=== PATIENT | female | born 1930 | race Caucasian/White ===

== ENCOUNTER 2018-03-01 11:59 | Observation (INO) ==
[2018-03-01 12:37] LABS: Microscopic, Urine URINE MICROSCOPIC (MICROSCOPIC)
[2018-03-01 12:40] LABS: Appearance,Urine CLEAR (Clear); Basophils % 0.5 % (0.1-2.0); Bilirubin,Urine Negative (Negative); Blood, Urine 3+ (Negative); Color,Urine YELLOW (Yellow); Eosinophils # 0.1 K/mm3 (0.0-0.4); Glucose,Urine (UA) Negative (Negative); Hematocrit 36.7 % (37.0-47.0); Ketones,Urine Negative (Negative); Leukocyte Esterase,Urine 1+ (Negative); Lymphocytes % 14.6 K/mm3 (10-50); Mean Corpuscular HGB Conc 32.7 g/dL (31.8-35.4); Mean Corpuscular Hemoglobin 29.8 pg (27.0-31.2); Mean Platelet Volume 6.4 fl (7.4-10.4); Monocytes # 0.4 K/mm3 (0.1-1.0); Monocytes % 6.3 % (1.7-9.3); Neutrophils # 5.1 K/mm3 (1.8-7.8); Neutrophils % 77.6 % (37.0-80.0); PH,Urine 6.5 (5.0-8.5); Platelet Count 377 K/mm3 (142-424); Protein,Urine Negative (Negative); Red Blood Count 4.03 M/mm3 (4.20-5.40); Red Cell Distribution Width 13.5 % (11.5-17.5); Specific Gravity, Urine 1.015 (1.005-1.030); Urobilinogen,Urine 0.2 EU/dl (0.2); White Blood Count 6.5 K/mm3 (4.8-10.8)
--- NOTE | 2018-03-01 12:52 | Emergency Department Note ---
ED Disposition Clinical Impression: Dehydration Urinary tract infection Qualifiers: Urinary tract infection type: site unspecified Hematuria presence: without hematuria Qualified Code(s): N39.0 - Urinary tract infection, site not specified Disposition: Admitted as Observation Condition on Discharge: Fair - Critical Care Critical Care Time: No Attestation: On 03/01/18, the high probability of a clinically significant, sudden or life threatening deterioration of the following system(s) required my full and direct attention, intervention and personal management. The time I documented below is in addition to time spent performing reported procedures but includes the following listed in this critical care notation. Medical Decision Making - Will Inquiry Pt receiving controlled substance: No Vital Signs: 03/01/18 12:07 03/01/18 12:39 03/01/18 13:51 Temperature 97.7 F Temperature Source Oral Pulse Rate Pulse Rate [Right Brachial] 68 70 69 Respiratory Rate 18 Blood Pressure Blood Pressure [Right Arm] 153/84 148/80 141/72 Blood Pressure Mean [Right Arm] 107 102 95 Blood Pressure Source Blood Pressure Source [Right Arm] Automatic Cuff Automatic Cuff Blood Pressure Position Blood Pressure Position [Right Arm] Supine Sitting 02 Sat by Pulse Oximetry 98 95 97 Oxygen Delivery Method Room Air 03/01/18 14:31 03/01/18 14:56 Temperature 98.1 F Temperature Source Oral Pulse Rate 78 Pulse Rate [Right Brachial] 71 Respiratory Rate 18 Blood Pressure 135/75 Blood Pressure [Right Arm] 138/75 Blood Pressure Mean [Right Arm] 96 Blood Pressure Source Automatic Cuff Blood Pressure Source [Right Arm] Manual Cuff/ Doppler Blood Pressure Position Sitting Blood Pressure Position [Right Arm] Sitting 02 Sat by Pulse Oximetry 96 Oxygen Delivery Method Room Air - Lab Data Lab Results 03/01/18 12:30: Urine Color Yellow, Urine Appearance Clear, Urine pH 6.5, Ur Specific [place] 1.015, Urine Protein Negative, Urine Glucose (UA) Negative, Urine Ketones Negative, Urine Blood 3+, Urine Nitrate Negative, Urine Bilirubin Negative, Urine Urobilinogen 0.2, Ur Leukocyte Esterase 1+ A, Urine RBC 10-20, Urine WBC 10-20, Ur Squamous Epith Cells 3-5, Urine Bacteria 1+, Urine Mucus 1+ 03/01/18 12:30: WBC 6.5, RBC 4.03 L, Hgb 12.0 L, Hct 36.7 L, MCV 91.0, MCH 29.8 , MCHC 32.7, RDW 13.5, Plt Count 377, MPV 6.4 L, Neut % (Auto) 77.6, Lymph % ( Auto) 14.6, [place] % (Auto) 6.3, Eos % (Auto) 1.0, Baso % (Auto) 0.5, Neut # (Auto ) 5.1, Lymph # (Auto) 1.0, [place] # (Auto) 0.4, Eos # (Auto) 0.1, Baso # (Auto) 0.0 03/01/18 12:30: Sodium 138, Potassium 4.6, Chloride 101, Carbon Dioxide 30, Anion Gap 11.6, BUN 26 H, Creatinine 0.88, Estimated Creat Clear 33, Estimated GFR 61, Est GFR ( Amer) 74, Glucose 96, Calcium 9.2, Total Bilirubin 0.3 , AST 12 L, ALT 12, Alkaline Phosphatase 209 H, Total Protein 7.3, Albumin 3.2 L , Globulin 4.1 H, Albumin/Globulin Ratio 0.8 L Result diagrams: 03/01/18 12:30 03/01/18 12:30 Orders (Tests/Meds): ED MEDICATIONS Generic Name Dose Route Start Last Admin Trade Name Freq PRN Reason Stop Dose Admin Sodium Chloride 1,000 mls @ 100 mls/hr 03/01/18 15:01 Sod Chlor 0.9% 1000ml Bag IV 03/31/18 15:00 .Q10H LINDA Ceftriaxone Sodium 1 gm/ 50 mls @ 100 mls/hr 03/02/18 13:45 Sodium Chloride IV 03/15/18 13:44 Q24H LINDA Protocol Discontinued Medications Generic Name Dose Route Start Last Admin Trade Name Freq PRN Reason Stop Dose Admin Ceftriaxone Sodium 1 gm/ 50 mls @ 100 mls/hr 03/01/18 13:45 03/01/18 14:05 Sodium Chloride IV 03/15/18 13:44 100 mls/hr Q24H LINDA Administration Protocol ORDERS Category Date Time Status Elbow XR right minimum 3 views [XR elbow RT min 3V] Exams 03/01/18 13:38 Taken Stat Humerus XR right [XR humerus RT] Stat Exams 03/01/18 13:50 Taken Urine Culture Stat Micro 03/01/18 12:31 Received - Radiology Data #1 Image(s): Chest, Humerus, Elbow, Pelvis Humerus and elbow x-ray interpreted by Juan Singh MD. old healed fracture distal humerus Chest x-ray per radiologist: No acute disease Pelvis x-ray per radiologist: Negative - CT Data CT Scan: Head Time Received: 13:[address] Reviewed: Yes: I have viewed the radiologist's interpretation Findings Narrative: IMPRESSION: 1. No acute intracranial finding. 2. Bilateral mastoid sinus disease Dictated By: Roscoe Arreaga MD Signed By: <Electronically signed by Roscoe Arreaga MD in OV> 03/01/18 1315 - Physician Consults Physician Consulted: Akash Time: 13:40 Reason -: Admission Comment/Response: Agrees to admit the patient to the hospital. We discussed the patient's clinical information, including history, exam, laboratory and radiology results and ED course. Per hospital procedure, I will write temporary bridge inpatient orders on the patient. Specific orders requested by the admitting physician: Rocephin, IV fluids, ECHO General Adult HPI - General Chief complaint: Altered Mental Status Stated complaint: dehydrated won't eat or drink Time Seen by Provider: 03/01/18 12:51 Mode of Arrival: Wheelchair Limitations: No Limitations Description of Symptoms (Recalled from ER Triage Doc. by RN): Pt sent from PCP office for further evaluation for UTI. Mohsen Prasad APRN called stated pt was being seen as new pt in their office today, per pt family pt is more confused today than normal. Family reports pt has had poor po intake x3 days, family reports pt fell out of bed 2 nights ago. - History of Present Illness HPI narrative: The patient is sent over from Dr. Bustos's office. History obtained primarily from the patient's family. Patient is very hard of hearing. She has not been seen by physician in about 3 years. Family states that she has not been gaining well for 3 days. She also fell out of her bed on Wednesday 2 days ago. She has chronic back pain and continues to complain of her back, but has no other new per injuries from the fall. Family notices her urine is dark. She has had increased anxiety for a few days. No fever, vomiting, diarrhea, or upper respiratory infection symptoms. She has a visible deformity in her right elbow area from a fall a couple of months ago. Would not see a physician at that time. - Related Data Home Medications Medication Instructions Recorded Confirmed No Known Home Medications 03/01/18 03/01/18 Allergies Allergy/AdvReac Type Severity Reaction Status Date / Time NO KNOWN ALLERGIES - NKA Allergy Unknown Uncoded 03/01/18 10:32 [facility] History I have reviewed the patient's past medical history: Yes Medical History: Reports:: Anxiety, Dementia Denies:: Diabetes Mellitus Type 1, Diabetes Mellitus Type 2 Comment: DDD Other Surgeries: Yes: Hernia Repair Amputation: No Fractures: No - Social History Smoking Status: Never smoker Alcohol Intake: never Substance Use Type: denies use - Psychiatric History Expresses thoughts of harming self/others: None Suicide Plan Description: No Plan Pschychiatric History:: Reports:: Anxiety Family Hx:: Hypertension, Heart Attack Comment: Demtia. ROS Obtained: Yes unobtainable due to mental condition Physical Exam - General General appearance: alert, in no apparent distress - Head Head exam: atraumatic, normocephalic, normal inspection - Eye Eye exam: Present: normal appearance, PERRL, EOMI - ENT ENT exam: Present: normal exam, normal oropharynx, mucous membranes moist, TM's normal bilaterally, normal external ear exam - Neck Neck exam: Present: normal inspection, full ROM, trachea midline. Absent: meningismus, lymphadenopathy - Chest Chest inspection: Present: normal inspection, symmetric chest wall rise. Absent : tenderness - Respiratory Respiratory exam: Present: normal lung sounds bilaterally. Absent: respiratory distress - Cardiovascular Cardiovascular exam: Present: regular rate, normal rhythm. Absent: JVD - Abdominal Exam Abdominal exam: Present: soft, normal bowel sounds. Absent: distention, tenderness, guarding - Extremities Exam Extremities exam: Present: full ROM, normal capillary refill, other (Soft tissue prominence over the radial aspect of her right proximal forearm, elbow area. Full range of motion.). Absent: calf tenderness - Back Exam Back exam: Present: normal inspection. Absent: tenderness - Neurological Exam Neurological exam: Present: alert, oriented X3 - Psychiatric Psychiatric exam: Present: normal affect, normal mood - Skin Skin exam: Present: warm, dry, intact, normal color - Lymphatic Lymphatic Findings: no adenopathy
[2018-03-01 12:53] LABS: Albumin Level 3.2 gm/dL (3.4-5.0); Albumin/Globulin Ratio 0.8 (1.1-1.8); Anion Gap 11.6 mEq/L (5-15); Bilirubin,Total 0.3 mg/dL (0.2-1.0); Calcium 9.2 mg/dL (8.5-10.1); Globulin 4.1 gm/dl (1.3-3.2); Potassium 4.6 mmoL/L (3.5-5.1); Total Protein,Serum 7.3 gm/dL (6.4-8.2)
[2018-03-01 12:55] LABS: Bacteria,Urine 1+ /lpf; Mucus,Urine 1+ /lpf
--- NOTE | 2018-03-01 20:42 | Cardiology Report ---
PROCEDURE: 2-D M-mode and color Doppler study INDICATIONS FOR THE TEST: Chest pain COPD Heart Murmur Tobacco Smoking Palpitations FatigueX Syncope Edema Hypertension Diabetes Mellitus Rheumatic Fever SOBXDOE Obesity Hyperlipidemia Family History HD Additional History WEAKNESS PATIENT INFORMATION HEIGHT: 63 WEIGHT:115 GENDER: Female B/P:140/72 2-D/M-MODE INTERPRETATION: 2-D MEASUREMENTS OBSERVED VALUES IN CMS Right Ventricular Dimension (RVDd) 1.7 Interventricular Septum (Thickness)(IVsd) .9 Left Ventricular Internal Dimensions(LVIDd) 5.6 Left Ventricular Posterior Wall (Thickness)(LVPWd) .9 Aortic Root 2.0 Aortic Cusp Separation Left Atrial Dimensions (LAD) 2.6 2D 1. Technically very difficult study because of the patient's factor and poor acoustic windows 2. The left atrium is mildly enlarged, left ventricle is normal size, there is no concentric left ventricular hypertrophy, visually estimated ejection fraction approximately 50% with no obvious regional wall motion abnormality, endocardial surface of poorly visualized. 3. The right atrium and right ventricle are relatively normal size and function. 4. The aortic valve leaflets are minimally thickened. 5. The mitral and tricuspid valve leaflets are minimally thickened. 6. No significant pericardial effusion noted 7. The pulmonic valve is poorly visualized. DOPPLER INTERROGATION: Doppler interrogation of the aortic, mitral and tricuspid valvular presence of mild mitral and tricuspid regurgitation, tricuspid regurgitation jet velocity is insufficient for calculation of the right ventricular systolic pressure, diastolic parameters are inconclusive. CONCLUSION: 1. Technically difficult study because of the patient's factor and poor acoustic windows 2. Mildly enlarged left atrium, normal left ventricular size, visually estimated ejection fraction 50% with no obvious regional wall motion abnormality, endocardial surface of very poorly visualized. 3. Mild mitral and tricuspid regurgitation 4. No significant pericardial effusion noted.
[2018-03-02 06:08] LABS: Anion Gap 7.3 mEq/L (5-15); Calcium 8.3 mg/dL (8.5-10.1); Potassium 4.3 mmoL/L (3.5-5.1)
--- NOTE | 2018-03-02 07:42 | Pharmacy Consult Notes ---
[facility] Pharmacy VTE Monitoring - Patient Demographics Admission date: 03/01/18 Report Date: 03/02/18 Time: 07:41 Allergies/Adverse Reactions: Patient Allergies No Known Allergies Allergy (Unverified 03/01/18 15:15) Height: 1.63 m Weight: 49.016 kg Patient Problems: Current Active Problems Urinary tract infection (Acute) Dehydration (Acute) - VTE Risk Labs: VTE Related Lab Results Hgb 12.0 g/dL (12.2-16.2) L 03/01/18 12:30 Hct 36.7 % (37.0-47.0) L 03/01/18 12:30 Plt Count 377 K/mm3 (142-424) 03/01/18 12:30 BUN 25 mg/dL (7-18) H 03/02/18 05:18 Creatinine 0.77 mg/dL (0.55-1.02) 03/02/18 05:18 Estimated Creat Clear 31 mL/min (0-300) 03/02/18 05:18 VTE Score: 3 VTE Risk Level: Low Risk Clinical Trial Participant: No - Prophylaxis VTE Prophylaxis Ordered?: Yes Types of VTE Prophylaxis: TEDS Knee High
--- NOTE | 2018-03-02 09:29 | History & Physical Report ---
*Admission Date: 03/01/18 *Chief complaint: weakness *History of present illness: this wf was seen in the pcp office and had acute mental status changes and was sent to ed and found to have uti - pt was admitted for ivf and abx [facility] History I have reviewed the patient's past medical history: Yes Medical History: Reports:: Anxiety, Dementia Denies:: Cancer, Diabetes Mellitus Type 1, Diabetes Mellitus Type 2, MRSA Other Surgeries: Yes: Hernia Repair Amputation: No Fractures: No - *Social History Educational Level: Attended College Smoking Status: Never smoker Alcohol Intake: never Substance Use Type: denies use Occupational Status: retired Housing: house - Psychiatric History Expresses thoughts of harming self/others: None Suicide Plan Description: No Plan Pschychiatric History:: Reports:: Anxiety *Family Hx:: Cancer, Heart Attack, Hypertension Review of Systems - Review of Systems Review of systems:: pertinent systems reviewed and negative unless documented below - Constitutional Reports weakness - Eyes Denies change in vision - ENT Reports hearing loss, Denies sore throat - *Cardiovascular Denies chest pain - *Respiratory Denies cough - *Gastrointestinal Denies abdominal pain - *Genitourinary Denies urinary urgency - *Musculoskeletal Reports joint pain, Reports other (falls) - Integumentary/Breasts Denies rash - *Neurologic Reports frequent falls, Reports weakness, Denies headache(s) - Psychiatric Reports abnormal sleep pattern Meds Home Medications Medication Instructions Recorded Confirmed Type Acetaminophen [Tylenol Extra 500 mg PO QID PRN 03/01/18 03/01/18 History Strength] Allergies Allergy/AdvReac Type Severity Reaction Status Date / Time No Known Allergies Allergy Unverified 03/01/18 15:15 Exam Vital signs and Labs for Last 24 Hours: Temp Pulse Resp BP Pulse Ox 98.2 F 73 18 157/72 98 03/02/18 07:46 03/02/18 07:46 03/02/18 07:46 03/02/18 07:46 03/02/18 07:46 Laboratory Results - last 24 hr 03/01/18 12:30: Urine Color Yellow, Urine Appearance Clear, Urine pH 6.5, Ur Specific [place] 1.015, Urine Protein Negative, Urine Glucose (UA) Negative, Urine Ketones Negative, Urine Blood 3+, Urine Nitrate Negative, Urine Bilirubin Negative, Urine Urobilinogen 0.2, Ur Leukocyte Esterase 1+ A, Urine RBC 10-20, Urine WBC 10-20, Ur Squamous Epith Cells 3-5, Urine Bacteria 1+, Urine Mucus 1+ 03/01/18 12:30: WBC 6.5, RBC 4.03 L, Hgb 12.0 L, Hct 36.7 L, MCV 91.0, MCH 29.8, MCHC 32.7, RDW 13.5, Plt Count 377, MPV 6.4 L, Neut % (Auto) 77.6, Lymph % (Auto) 14.6, [place] % (Auto) 6.3, Eos % (Auto) 1.0, Baso % (Auto) 0.5, Neut # (Auto) 5.1, Lymph # (Auto) 1.0, [place] # (Auto) 0.4, Eos # (Auto) 0.1, Baso # (Auto) 0.0 03/01/18 12:30: Sodium 138, Potassium 4.6, Chloride 101, Carbon Dioxide 30, Anion Gap 11.6, BUN 26 H, Creatinine 0.88, Estimated Creat Clear 33, Estimated GFR 61, Est GFR ( Amer) 74, Glucose 96, Calcium 9.2, Total Bilirubin 0.3, AST 12 L, ALT 12, Alkaline Phosphatase 209 H, Total Protein 7.3, Albumin 3.2 L, Globulin 4.1 H, Albumin/Globulin Ratio 0.8 L 03/02/18 05:18: Sodium 130 L, Potassium 4.3, Chloride 102, Carbon Dioxide 25, Anion Gap 7.3, BUN 25 H, Creatinine 0.77, Estimated Creat Clear 31, Estimated GFR 71, Est GFR ( Amer) 86, Glucose 92, Calcium 8.3 L I & O for Last 24 hours: Intake & Output 02/27/18 02/28/18 03/01/18 03/02/18 11:59 11:59 11:59 11:59 Intake Total 2004 Balance 2004 Weight 108 lb 1 oz - *Routine HEENT Exam Eye: Present: EOMI, PERRL ENT: Present: mucous membranes dry - *Routine Neck Exam Absent: JVD, carotid bruit - *Routine Respiratory Exam Present: decreased breath sounds - *Routine Cardiovascular Exam Present: RRR, murmur, S4 - *Routine Abdominal Exam Present: soft - *Routine Extremities Exam Absent: calf tenderness - *Routine Skin Exam Present: intact - *Routine Neurological Exam Present: alert, CN II-XII intact. Absent: hearing grossly intact - Routine Psychiatric Exam Present: unable to assess Assessment and Plan (1) Urinary tract infection Current visit: Yes Status: Acute Qualifiers: Urinary tract infection type: site unspecified Hematuria presence: without hematuria Qualified Code(s): N39.0 - Urinary tract infection, site not specified Category: Medical Code(s): N39.0 - Urinary tract infection, site not specified (2) Hearing impairment Current visit: Yes Status: Acute Category: Social Hx Code(s): H91.90 - Unspecified hearing loss, unspecified ear (3) Fall Current visit: Yes Status: Acute Category: Medical Code(s): W19.XXXA - Unspecified fall, initial encounter (4) Immobility Current visit: Yes Status: Acute Category: Medical Code(s): Z74.09 - Other reduced mobility
[2018-03-02 10:07] LABS: T4 (Thyroxine) 7.7 ug/dl (4.7-13.3); Thyroid Stimulating Hormone 5.5 uIU/ml (0.358-3.740)
--- NOTE | 2018-03-03 11:09 | Discharge Summary ---
General - General Admission date:: 03/01/18 Discharge date: 03/03/18 HPI HPI: this wf was seen in the pcp office and had acute mental status changes and was sent to ed and found to have uti - pt was admitted for ivf and abx Hospital Course Hospital Course: pt did well with ivf and abx and was more alert and was eval by therapy we discussed falls and therapy and maintain fluids for pt at home and increased socialization - will follow as op - family declined home therapy - labs and diet improved Objective Vital signs: Temp Pulse Resp BP Pulse Ox 98.9 F 77 20 150/67 96 03/03/18 08:00 03/03/18 08:00 03/03/18 08:00 03/03/18 08:00 03/03/18 08:00 no acute distress - *Routine HEENT Exam Head: Present: normocephalic Eye: Present: EOMI, PERRL ENT: Present: mucous membranes dry - *Routine Neck Exam Present: supple - *Routine Respiratory Exam Present: CTA bilaterally - *Routine Cardiovascular Exam Present: murmur - *Routine Abdominal Exam Present: soft - *Routine Extremities Exam Absent: edema - *Routine Skin Exam Present: intact - *Routine Neurological Exam Present: alert, oriented X3, CN II-XII intact - Routine Psychiatric Exam Present: normal affect Results Labs on day of discharge: Preliminary micro results at discharge 03/01/18 12:31 Urine Culture - Preliminary Urine,Catheterized NO GROWTH AFTER 24 HOURS DS: Diagnosis - Discharge Diagnosis (1) Urinary tract infection Status: Acute (2) Hearing impairment Status: Acute (3) Fall Status: Acute (4) Immobility Status: Acute Discharge Plan - Patient Discharge Instructions ACTIVITY: Continue current activity DIET: continue same diet - Follow up Plan Disposition: Home, Self-Correction Medications: Home Medications Medication Instructions Recorded Confirmed Type Acetaminophen [Tylenol Extra 500 mg PO QID PRN 03/01/18 03/01/18 History Strength] Prescriptions/Medication Reconciliation: New Buspirone HCl [Buspar 5mg tablet] 5 mg PO BID #60 tablet Discontinued Acetaminophen [Tylenol Extra Strength] 500 mg PO QID PRN PRN Reason: pain
== END 2018-03-03 13:05 | disposition home or self-care (01) ==
LOC: ER 11:59 → 2ND 11:59
PROVIDERS: ADMIT Emergency Medicine; ATTEND Emergency Medicine
CPT/HCPCS: 36415; 70450; 71010; 71045; 72170; 73060; 73080; 80048; 80053; 81001; 84436; 84443; 85025; 87086; 93306; 96374; 97162; 97165; 99284; G0378

== ENCOUNTER 2018-11-06 15:41 | Inpatient (IN) ==
--- NOTE | 2018-11-06 15:44 | Emergency Department Note ---
ED Disposition Clinical Impression: New onset atrial fibrillation, Atrial fibrillation with rapid ventricular response, Dehydration Altered mental status Qualifiers: Altered mental status type: somnolence Qualified Code(s): R40.0 - Somnolence Disposition: Admitted As Inpatient Condition on Discharge: Serious - Critical Care Critical Care Time: Yes Attestation: On , the high probability of a clinically significant, sudden or life threatening deterioration of the following system(s) required my full and direct attention, intervention and personal management. The time I documented below is in addition to time spent performing reported procedures but includes the following listed in this critical care notation. Total Critical Care Time: 50 Vital system(s) involved:: Circulatory Failure My critical care processes included: Assessment & monitoring of V/S, Initial and Re-exams, Data Review/Interpretation, Coordinating Care, Medication Orders and management, Documentation Medical Decision Making - Will Inquiry Pt receiving controlled substance: No Vital Signs: 11/06/18 15:41 11/06/18 15:46 11/06/18 15:49 Temperature 98.0 F Temperature Source Oral Pulse Rate [Right Brachial] 116 H 145 H 131 H Respiratory Rate 26 H Blood Pressure [Right Arm] 113/63 104/67 L 118/54 L Blood Pressure Mean [Right Arm] 79 79 75 Blood Pressure Source [Right Arm] Automatic Cuff Automatic Cuff Automatic Cuff Blood Pressure Position [Right Arm] Supine Supine 02 Sat by Pulse Oximetry 94 L 97 94 L Oxygen Delivery Method Room Air Room Air Room Air 11/06/18 16:00 11/06/18 16:11 11/06/18 16:41 Temperature Temperature Source Pulse Rate [Right Brachial] 113 H 108 H 124 H Respiratory Rate Blood Pressure [Right Arm] 125/59 L 112/73 111/63 Blood Pressure Mean [Right Arm] 81 86 79 Blood Pressure Source [Right Arm] Automatic Cuff Automatic Cuff Automatic Cuff Blood Pressure Position [Right Arm] Sitting Supine Sitting 02 Sat by Pulse Oximetry 94 L 100 100 Oxygen Delivery Method Room Air Room Air Room Air 11/06/18 16:53 11/06/18 17:00 11/06/18 17:05 Temperature Temperature Source Pulse Rate [Right Brachial] 116 H 126 H 126 H Respiratory Rate Blood Pressure [Right Arm] 131/71 97/61 L 114/50 L Blood Pressure Mean [Right Arm] 91 73 71 Blood Pressure Source [Right Arm] Automatic Cuff Blood Pressure Position [Right Arm] Supine 02 Sat by Pulse Oximetry 95 96 93 L Oxygen Delivery Method Room Air 11/06/18 17:30 11/06/18 17:38 11/06/18 17:55 Temperature Temperature Source Pulse Rate [Right Brachial] 129 H 124 H 120 H Respiratory Rate Blood Pressure [Right Arm] 120/35 L 115/62 108/57 L Blood Pressure Mean [Right Arm] 63 79 74 Blood Pressure Source [Right Arm] Blood Pressure Position [Right Arm] 02 Sat by Pulse Oximetry 98 98 97 Oxygen Delivery Method 11/06/18 18:00 11/06/18 18:30 11/06/18 18:54 Temperature Temperature Source Pulse Rate [Right Brachial] 121 H 103 H 101 H Respiratory Rate Blood Pressure [Right Arm] 121/75 118/58 L 105/61 L Blood Pressure Mean [Right Arm] 90 78 75 Blood Pressure Source [Right Arm] Blood Pressure Position [Right Arm] 02 Sat by Pulse Oximetry 93 L 88 L 96 Oxygen Delivery Method 11/06/18 19:00 Temperature Temperature Source Pulse Rate [Right Brachial] 109 H Respiratory Rate Blood Pressure [Right Arm] 124/63 Blood Pressure Mean [Right Arm] 83 Blood Pressure Source [Right Arm] Automatic Cuff Blood Pressure Position [Right Arm] Sitting 02 Sat by Pulse Oximetry 93 L Oxygen Delivery Method - Lab Data Lab Results 11/06/18 16:00: ABG pH 7.51 H, ABG pCO2 25.0 L, ABG pO2 65.8 L, ABG HCO3 19.4 L, ABG Total CO2 20.2 L, ABG O2 Saturation 93, ABG Base Excess -3.6 L 11/06/18 16:50: WBC 9.1, RBC 3.87 L, Hgb 10.6 L, Hct 32.2 L, MCV 83.1, MCH 27.4, MCHC 33.0, RDW 13.8, Plt Count 243, MPV 7.9, Neut % (Auto) 63.1, Lymph % (Auto) 30.9, [place] % (Auto) 5.7, Eos % (Auto) 0.0 L, Baso % (Auto) 0.3, Neut # (Auto) 5.7, Lymph # (Auto) 2.8, [place] # (Auto) 0.5, Eos # (Auto) 0.0, Baso # (Auto) 0.0 11/06/18 16:50: Sodium 123 L, Potassium 4.3, Chloride 91 L, Carbon Dioxide 20 L, Anion Gap 16.3 H, BUN 48 H, Creatinine 1.15 H, Estimated Creat Clear 19, Estimated GFR 45 L, Est GFR ( Amer) 54 L, Glucose 110 H, Calcium 7.7 L, Total Bilirubin 0.5, AST 158 H, ALT 44, Alkaline Phosphatase 163 H, Troponin I 0.10 H, Total Protein 5.2 L D, Albumin 1.6 L, Globulin 3.6 H, Albumin/Globulin Ratio 0.4 L, TSH 2.01 D, Free T4 Index 1.7 L, Thyroxine (T4) 4.6 L, T3 Uptake 36 Result diagrams: 11/06/18 16:50 11/06/18 16:50 Orders (Tests/Meds): ED MEDICATIONS Generic Name Dose Route Start Last Admin Trade Name Freq PRN Reason Stop Dose Admin Aspirin 300 mg 11/06/18 18:08 Aspirin 600mg Suppository RC 11/06/18 18:09 ONCE ONE Diltiazem HCl 100 mg/ Sodium 100 mls @ 5 mls/hr 11/06/18 16:05 11/06/18 17:54 Chloride IV 12/06/18 16:04 5 mls/hr .Q20H LINDA Administration Diltiazem HCl 125 mg/ Sodium 125 mls @ 5 mls/hr 11/06/18 16:15 11/06/18 17:55 Chloride IV 12/06/18 16:14 5 mls/hr .Q25H LINDA Administration Protocol 5 MG/HR Sodium Chloride 1,000 mls @ 999 mls/hr 11/06/18 18:00 11/06/18 17:58 Sod Chlor 0.9% 1000ml Bag IV 11/06/18 19:00 999 mls/hr .Q1H1M LINDA Administration Discontinued Medications Generic Name Dose Route Start Last Admin Trade Name Freq PRN Reason Stop Dose Admin Diltiazem HCl 10 mg 11/06/18 15:50 11/06/18 17:54 Cardizem 25mg/5ml Vial IV 11/06/18 15:51 10 mg ONCE ONE Administration Sodium Chloride 1,000 ml 11/06/18 15:49 11/06/18 17:54 Sod Chlor 0.9% 1000ml Bag IV 11/06/18 15:50 1,000 ml BOLUS ONE Administration ORDERS Category Date Time Status CT head/brain wo con Stat Cat Scan 11/06/18 17:50 Taken Chest XR -- portable [XR chest portable] Stat Exams 11/06/18 19:09 Taken XR chest portable Stat Exams 11/06/18 15:49 Taken Lactic Acid Stat Lab 11/06/18 17:38 Ordered ABG [Arterial Blood Gas] Stat RT 11/06/18 16:00 Results - Radiology Data #1 Image(s): Chest Image Reviewed: Yes I reviewed the patient's radiology image no acute infiltrates seen - CT Data CT Scan: Head Time Received: 19:[address] Reviewed: Yes: I have viewed the radiologist's interpretation Findings Narrative: CT scan interpreted by [facility] radiologist. Faxed report received and reviewed: Negative for acute intracranial pathology - ECG Data Tracing #1 EKG interpreted by Juan Singh MD: Rhythm: Regular tachycardia with right bundle branch block (bundle branch block is chronic), likely atrial flutter Rate: 210 [place]: normal Ectopy: none Conduction: normal ST Segment Changes: none T Wave Changes: none Q Waves: none Low voltage QRS Tracing #2 EKG #2 interpreted by Juan Singh MD: Rhythm: Atrial fibrillation with rapid ventricular response Rate: 145 [place]: Left Ectopy: none Conduction: Right bundle branch block ST Segment Changes: none T Wave Changes: none Q Waves: none Low QRS voltage - Physician Consults Physician Consulted: Rafael Bustos Time: 19:30 Reason -: Admission Comment/Response: Agrees to admit the patient to the hospital. We discussed the patient's clinical information, including history, exam, laboratory and radiology results and ED course. Per hospital procedure, I will write temporary bridge inpatient orders on the patient. [facility]: Admit to stepdown. Continue Cardizem drip. Continue IV fluids. Lovenox 1 mg/kg every 12 hours. Medical Decision Narrative: Nurses only able to establish 24-gauge IV in the wrist. Patient moved to room 2 for attempt at central venous catheter. The patient's head is rotated to the left and contractured, cannot get it to turn to the right. Therefore the only accessible internal jugular would be on the right side. I am not able to visualize a collapsible vein on the right with ultrasound and therefore cannot attempt internal jugular. Attempted to visualize femoral vein. The patient is unable to straighten her legs, contractured at the hips, and therefore I am unable to attempt femoral venous catheter. I attempted a right subclavian central venous catheter by landmarks. Anesthetized with 2% lidocaine sterilely prepped and draped. After several passes I could obtain small amounts of very thick rapidly clotting blood but never obtained a sufficient blood return to attempt to pass a wire. I contacted Dr. Scott, surgeon propulsion systems engineer to request that he attempted venous access. He says that he can be here in about 25 minutes. 7:15 PM: Dr. Scott present, has placed central line, awaiting x-ray. 7:30 PM: Dr. Scott states central line goes up into the internal jugular, but it is functioning and he would recommend leaving it and using it as she has no other sufficient access. General Adult HPI - General Chief complaint: Altered Mental Status Stated complaint: altered Time Seen by Provider: 11/06/18 15:43 - History of Present Illness HPI narrative: History obtained from daughters and grandson. The patient slumped over while on the toilet on Wednesday 6 days ago. Had to be lifted and put back in bed. Since then has been prostrate in bed, not eating or drinking well, rolled up in a ball. Decreased urinary output. Had diarrhea on . Decreased responsiveness. Has dementia. Family states does not have advanced directives, but daughter is power of ripsawyer. She says she would "not want to be on a ventilator if she is not going to pull out of it". - Related Data Previous Rx's Medication Instructions Recorded Buspirone HCl [Buspar 5mg tablet] 5 mg PO BID #60 tab 03/03/18 hydrocodone 5 mg-acetaminophen 325 1 tab PO BID PRN #30 tab 03/15/18 mg tablet memantine ER 01/15/21 See Rx Instructions PO PER PKG DIR 03/15/18 mg-donepezil 10 mg #28 each capsule,sprink,ER 24hr pack memantine 28 mg capsule 28 mg PO DAILY #30 each 04/07/18 sprinkle,extended release 24hr Allergies Allergy/AdvReac Type Severity Reaction Status Date / Time No Known Allergies Allergy Unverified 03/15/18 09:18 [facility] History - Hepatitis A Screen Attestation statement:: This patient has been screened for Hepatitis A risk factors. I have reviewed the patient's past medical history: Yes Medical History: Reports:: Anxiety, Dementia Denies:: Cancer, Diabetes Mellitus Type 1, Diabetes Mellitus Type 2, MRSA Comment: DDD Other Surgeries: Yes: Hernia Repair Amputation: No Fractures: No - Social History Smoking Status: Never smoker Alcohol Intake: never Substance Use Type: denies use Occupational Status: retired Housing: house - Psychiatric History Pschychiatric History:: Reports:: Anxiety Family Hx:: Cancer, Heart Attack, Hypertension Comment: Demtia. ROS Obtained: Yes unobtainable due to mental status Physical Exam - General General appearance: cachectic Comment: Unkempt, dirty and malodorous. Unresponsive. - Head Head exam: atraumatic, normocephalic - Eye Eye exam: Present: miosis - ENT ENT exam: Present: mucous membranes moist - Neck Neck exam: Present: normal inspection, trachea midline - Chest Chest inspection: Present: symmetric chest wall rise - Respiratory Respiratory exam: Present: normal lung sounds bilaterally - Cardiovascular Cardiovascular exam: Present: tachycardia, irregular rhythm - Abdominal Exam Abdominal exam: Present: soft. Absent: distention - Neurological Exam Neurological exam: Present: other (Minimally responsive to pain) - Skin Skin exam: Present: warm, dry - Other Other exam information: 1+ pitting edema of both feet and right hand.
[2018-11-06 16:55] LABS: ABG Base Excess -3.6 mmol/L (-2.4-2.3); ABG HCO3 19.4 mmhg (22.0-26.0); ABG Oxygen Saturation 93 % (90-100); ABG PH 7.51 mmol/L (7.35-7.45); ABG PO2 65.8 mmhg (80-100); ABG TCO2 20.2 mmhg (23-27)
[2018-11-06 16:58] LABS: Allen's Test Acceptable; Oxygen 21 %
[2018-11-06 16:58] LABS: Basophils % 0.3 % (0.1-2.0); Hematocrit 32.2 % (37.0-47.0); Hemoglobin 10.6 g/dL (12.2-16.2); Lymphocytes # 2.8 K/mm3 (0.7-4.5); Lymphocytes % 30.9 % (10-50); Mean Corpuscular Hemoglobin 27.4 pg (27.0-31.2); Mean Corpuscular Volume 83.1 fl (81-99); Mean Platelet Volume 7.9 fl (7.4-10.4); Monocytes # 0.5 K/mm3 (0.1-1.0); Monocytes % 5.7 % (1.7-9.3); Neutrophils # 5.7 K/mm3 (1.8-7.8); Neutrophils % 63.1 % (37.0-80.0); Platelet Count 243 K/mm3 (142-424); Red Blood Count 3.87 M/mm3 (4.20-5.40); Red Cell Distribution Width 13.8 % (11.5-17.5); White Blood Count 9.1 K/mm3 (4.8-10.8)
[2018-11-06 17:32] LABS: Potassium 4.3 mmoL/L (3.5-5.1)
[2018-11-06 17:51] LABS: Albumin Level 1.6 gm/dL (3.4-5.0); Albumin/Globulin Ratio 0.4 (1.1-1.8); Anion Gap 16.3 mEq/L (5-15); Bilirubin,Total 0.5 mg/dL (0.2-1.0); Calcium 7.7 mg/dL (8.5-10.1); Free Thyroxine Index 1.7 ug/dL (5.93-13.13); Globulin 3.6 gm/dl (1.3-3.2); Thyroid Stimulating Hormone 2.01 uIU/ml (0.358-3.740); Total Protein,Serum 5.2 gm/dL (6.4-8.2)
--- NOTE | 2018-11-06 19:17 | Procedure Note ---
[facility] Procedure Note Procedure Note:: Patient is an 88-year-old white female who was brought into the emergency department with significantly altered mental status and findings consistent with appreciable illness. Patient has profound chronic extremity contractures. Multiple attempts were made at traditional peripheral venous access without gomez ccess in the ER physician had attempted some central venous access without success. Surgery was then contacted regarding possible venous access placement. She was positioned in Trendelenburg position. Right neck and chest were prepped and draped in the standard surgical fashion. Local anesthetic was infiltrated inferior to the left clavicle. Numerous attempts were made at an attempt to cannulate the right subclavian vein. On several occasions there was some tenuous return of venous blood flow but guidewire could not be threaded. A couple of attempts were made at cannulation of the right internal jugular vein without success after injection of local anesthetic. Once again attention was turned to the right subclavian vein. Ultimately the vein was cannulated with intermittent return of venous blood. Guidewire was able to be threaded. Small incision was made at the guidewire insertion site. Subcutaneous tissues were dilated. 7 Maltese triple-lumen catheter was then inserted over the guidewire using Seldinger technique. It was secured at approximately the 15 cm rosemary with silk sutures. All ports aspirated and flushed without difficulty. Chest x-ray is being performed at the time of this dictation. Clean dry sterile dressing was applied.
--- NOTE | 2018-11-06 21:38 | History & Physical Report ---
*Admission Date: 11/06/18 *Chief complaint: change in mental status *History of present illness: elderly wf who family reports has not acted at baseline for a few days tory obtained from daughters and grandson. The patient slumped over while on the toilet on Wednesday 6 days ago. Had to be lifted and put back in bed. Since then has been prostrate in bed, not eating or drinking well, rolled up in a ball. Decreased urinary output. Had diarrhea on . Decreased responsiveness. Has dementia. Family states does not have advanced directives, but daughter is power of criminal defense attorney. She says she would "not want to be on a ventilator if she is not going to pull out of it". [facility] History I have reviewed the patient's past medical history: Yes Medical History: Reports:: Anxiety, Dementia Denies:: Cancer, Diabetes Mellitus Type 1, Diabetes Mellitus Type 2, MRSA *Have you ever received a pneumonia vaccine?: No *Have you received a flu vaccine this season?: No Other Surgeries: Yes: Hernia Repair Amputation: No Fractures: No - *Social History Smoking Status: Unknown if ever smoked Alcohol Intake: never Substance Use Type: denies use *Occupational Status:: retired Housing: house Household Members: family, children *Travel in the last 8 weeks: None - Psychiatric History Expresses thoughts of harming self/others: None Suicide Plan Description: No Plan Pschychiatric History:: Reports:: Anxiety Family Hx:: Cancer, Heart Attack, Hypertension Review of Systems - Review of Systems Review of systems:: pertinent systems reviewed and negative unless documented below - Constitutional Denies headache(s) - Eyes Denies change in vision - ENT Denies sore throat - *Cardiovascular Denies chest pain, Denies shortness of breath - *Respiratory Denies cough - *Gastrointestinal Denies abdominal pain - *Genitourinary Denies blood in urine - *Musculoskeletal Denies joint pain - Integumentary/Breasts Denies rash - *Neurologic Denies seizure-like activity - Psychiatric Denies anxiety Meds Home Medications Medication Instructions Recorded Confirmed Type Aspirin [Aspir 81] 81 mg PO DAILY 11/06/18 11/06/18 History Multivitamin [One Daily] 1 each PO DAILY 11/06/18 11/06/18 History Allergies Allergy/AdvReac Type Severity Reaction Status Date / Time No Known Allergies Allergy Unverified 03/15/18 09:18 Exam Vital signs and Labs for Last 24 Hours: Temp Pulse Resp BP Pulse Ox 96.6 F L 98 H 16 93/65 L 93 L 11/06/18 20:21 11/06/18 20:21 11/06/18 20:21 11/06/18 20:21 11/06/18 19:00 Laboratory Results - last 24 hr 11/06/18 16:00: ABG pH 7.51 H, ABG pCO2 25.0 L, ABG pO2 65.8 L, ABG HCO3 19.4 L, ABG Total CO2 20.2 L, ABG O2 Saturation 93, ABG Base Excess -3.6 L 11/06/18 16:50: WBC 9.1, RBC 3.87 L, Hgb 10.6 L, Hct 32.2 L, MCV 83.1, MCH 27.4, MCHC 33.0, RDW 13.8, Plt Count 243, MPV 7.9, Neut % (Auto) 63.1, Lymph % (Auto) 30.9, [place] % (Auto) 5.7, Eos % (Auto) 0.0 L, Baso % (Auto) 0.3, Neut # (Auto) 5.7, Lymph # (Auto) 2.8, [place] # (Auto) 0.5, Eos # (Auto) 0.0, Baso # (Auto) 0.0 11/06/18 16:50: Sodium 123 L, Potassium 4.3, Chloride 91 L, Carbon Dioxide 20 L, Anion Gap 16.3 H, BUN 48 H, Creatinine 1.15 H, Estimated Creat Clear 19, Estimated GFR 45 L, Est GFR ( Amer) 54 L, Glucose 110 H, Calcium 7.7 L, Total Bilirubin 0.5, AST 158 H, ALT 44, Alkaline Phosphatase 163 H, Troponin I 0.10 H, Total Protein 5.2 L D, Albumin 1.6 L, Globulin 3.6 H, Albumin/Globulin Ratio 0.4 L, TSH 2.01 D, Free T4 Index 1.7 L, Thyroxine (T4) 4.6 L, T3 Uptake 36 11/06/18 19:45: Lactate 2.1 H I & O for Last 24 hours: Intake & Output 11/04/18 11/05/18 11/06/1806/19 11:59 11:59 11:59 11:59 Intake Total 2019 Balance 2019 Weight 80 lb - Constitutional no acute distress, cachectic, chronically ill appearing, disheveled - *Routine HEENT Exam Head: Present: normocephalic Eye: Present: EOMI, PERRL ENT: Present: mucous membranes dry - *Routine Neck Exam Absent: JVD - *Routine Respiratory Exam Present: decreased breath sounds - *Routine Cardiovascular Exam Present: murmur, irregularly irregular - *Routine Abdominal Exam Present: soft - *Routine Extremities Exam Absent: calf tenderness - *Routine Skin Exam Present: intact - *Routine Neurological Exam Present: alert, CN II-XII intact - Routine Psychiatric Exam Present: unable to assess Assessment and Plan (1) RBBB Current visit: Yes Status: Acute Category: Medical Code(s): I45.10 - Unspecified right bundle-branch block (2) Atrial fibrillation with rapid ventricular response Current visit: Yes Status: Acute Category: Medical Code(s): I48.91 - Unspecified atrial fibrillation (3) New onset atrial fibrillation Current visit: Yes Status: Acute Category: Medical Code(s): I48.91 - Unspecified atrial fibrillation (4) Low body mass index (BMI) Current visit: Yes Status: Acute Category: Medical (5) Pulmonary nodules Current visit: Yes Status: Acute Category: Medical Code(s): R91.8 - Other nonspecific abnormal finding of lung field (6) Anemia Current visit: Yes Status: Acute Qualifiers: Anemia type: unspecified type Qualified Code(s): D64.9 - Anemia, unspecified Category: Medical Code(s): D64.9 - Anemia, unspecified (7) Hyponatremia Current visit: Yes Status: Acute Category: Medical Code(s): E87.1 - Hypo- osmolality and hyponatremia (8) Elevated troponin Current visit: Yes Status: Acute Category: Medical Code(s): R74.8 - Abnormal levels of other serum enzymes (9) Renal insufficiency Current visit: Yes Status: Acute Category: Medical Code(s): N28.9 - Disorder of kidney and ureter, unspecified
[2018-11-07 05:25] LABS: Anion Gap 16.1 mEq/L (5-15); Calcium 7.7 mg/dL (8.5-10.1); Potassium 4.1 mmoL/L (3.5-5.1)
--- NOTE | 2018-11-07 07:40 | Pharmacy Consult Notes ---
[facility] Pharmacy VTE Monitoring - Patient Demographics Admission date: 11/06/18 Report Date: 11/07/18 Time: 07:40 Allergies/Adverse Reactions: Patient Allergies No Known Allergies Allergy (Unverified 03/15/18 09:18) Height: 1.63 m Weight: 36.287 kg Patient Problems: Current Active Problems (Updated 11/07/18 @ 07:02 by Marcos Bustos MD) Dehydration (Acute) New onset atrial fibrillation (Acute) Atrial fibrillation with rapid ventricular response (Acute) Altered mental status (Acute) RBBB (Acute) Low body mass index (BMI) (Acute) Pulmonary nodules (Acute) Anemia (Acute) Hyponatremia (Acute) Elevated troponin (Acute) Renal insufficiency (Acute) - VTE Risk Labs: VTE Related Lab Results Hgb 10.6 g/dL (12.2-16.2) L 11/06/18 16:50 Hct 32.2 % (37.0-47.0) L 11/06/18 16:50 Plt Count 243 K/mm3 (142-424) 11/06/18 16:50 BUN 43 mg/dL (7-18) H 11/07/18 04:50 Creatinine 0.79 mg/dL (0.55-1.02) D 11/07/18 04:50 Estimated Creat Clear 22 mL/min (50-200) 11/07/18 04:50 Was VTE Risk Assessment Performed: Yes VTE Score: 5 VTE Risk Level: Low Risk Clinical Trial Participant: No - Prophylaxis VTE Prophylaxis Ordered?: Yes Types of VTE Prophylaxis: TEDS Knee High, Pharmacological Pharmacologic Type: Enoxaparin
[2018-11-07 08:15] LABS: Eosinophils % 0.2 % (0.1-12.0); Lymphocytes # 0.7 K/mm3 (0.7-4.5); Red Cell Distribution Width 14.1 % (11.5-17.5)
[2018-11-07 08:17] LABS: Basophils % 0.2 % (0.1-2.0); Hematocrit 27.7 % (37.0-47.0); Lymphocytes % 12.6 % (10-50); Mean Corpuscular HGB Conc 33.6 g/dL (31.8-35.4); Mean Corpuscular Hemoglobin 27.5 pg (27.0-31.2); Mean Corpuscular Volume 81.8 fl (81-99); Mean Platelet Volume 8.4 fl (7.4-10.4); Monocytes # 0.4 K/mm3 (0.1-1.0); Monocytes % 7.3 % (1.7-9.3); Neutrophils # 4.5 K/mm3 (1.8-7.8); Neutrophils % 79.6 % (37.0-80.0); Platelet Count 182 K/mm3 (142-424); Red Blood Count 3.39 M/mm3 (4.20-5.40); White Blood Count 5.6 K/mm3 (4.8-10.8)
[2018-11-07 08:24] LABS: Hemoglobin 9.3 g/dL (12.2-16.2); Thyroid Stimulating Hormone 0.66 uIU/ml (0.358-3.740)
[2018-11-07 09:05] LABS: Microscopic, Urine URINE MICROSCOPIC (MICROSCOPIC)
[2018-11-07 09:17] LABS: Appearance,Urine CLOUDY (Clear); Blood, Urine 3+ (Negative); Color,Urine RED (Yellow); Glucose,Urine (UA) Negative (Negative); Ketones,Urine Negative (Negative); Leukocyte Esterase,Urine Negative (Negative); Protein,Urine 1+ (Negative)
[2018-11-07 09:19] LABS: Bilirubin,Urine Negative (Negative)
[2018-11-07 09:30] LABS: Bacteria,Urine 2+ /lpf; RBC,Urine TNTC #/hpf (0-3); Squamous Epithelial Cell,Urine Occasional #/hpf (0-5)
--- NOTE | 2018-11-07 10:39 | Consult Report ---
History of Present Illness Consult date: 11/07/18 Requesting physician: Marcos Bustos Consult reason: atrial fibrillation Chief complaint: atrial fibrillation Additional Medical History:: 1. Dementia A. Ct of head, 11/2018, no acute changes with atrophy and chronic ischemic gliotic changes noted. 2. history of anxiety 3. A. fib with RVR, 11/2018 A. NSTEMI, type 2 related to demand ischemia B. Preliminary echo, 11/2018, LVEF about 50% 4. CXR, 11/2018, bilateral pulmonary nodules 5. Anemia History of present illness: elderly wf who family reports has not acted at baseline for a few days tory obtained from daughters and grandson. The patient slumped over while on the toilet on Wednesday 6 days ago. Had to be lifted and put back in bed. Since then has been prostrate in bed, not eating or drinking well, rolled up in a ball. Decreased urinary output. Had diarrhea on . Decreased responsiveness. Has dementia. Family states does not have advanced directives, but daughter is power of disability attorney. She says she would "not want to be on a ventilator if she is not going to pull out of it" The above per Dr. Bustos Pt is non-verbal except for occasional moan. [facility] History Medical History: Reports:: Anxiety, Dementia Denies:: Cancer, Diabetes Mellitus Type 1, Diabetes Mellitus Type 2, MRSA *Have you ever received a pneumonia vaccine?: No *Have you received a flu vaccine this season?: No (not flu season) Other Medical History: Reports: Arthritis Other Surgeries: Yes: Hernia Repair Amputation: No Fractures: No - *Social History Educational Level: Completed High School Smoking Status: Never smoker Alcohol Intake: never Substance Use Type: denies use *Occupational Status:: retired Housing: house Household Members: family, children *Travel in the last 8 weeks: None - Psychiatric History Expresses thoughts of harming self/others: None Suicide Plan Description: No Plan Pschychiatric History:: Reports:: Anxiety Family Hx:: Cancer, Heart Attack, Hypertension Meds Home Medications Medication Instructions Recorded Confirmed Type Aspirin [Aspir 81] 81 mg PO DAILY 11/06/18 11/06/18 History Multivitamin [One Daily] 1 each PO DAILY 11/06/18 11/06/18 History Allergies Allergy/AdvReac Type Severity Reaction Status Date / Time No Known Allergies Allergy Unverified 03/15/18 09:18 Review of Systems - Review of Systems Review of systems:: unable to obtain - *Neurologic Denies headache(s), Denies seizure-like activity Exam Vital signs and Labs for Last 24 Hours: Temp Pulse Resp BP Pulse Ox 97.6 F 93 H 20 92/46 L 87 L 11/07/18 08:00 11/07/18 08:00 11/07/18 08:00 11/07/18 08:00 11/07/18 08:00 Laboratory Results - last 24 hr 11/06/18 16:00: ABG pH 7.51 H, ABG pCO2 25.0 L, ABG pO2 65.8 L, ABG HCO3 19.4 L, ABG Total CO2 20.2 L, ABG O2 Saturation 93, ABG Base Excess -3.6 L 11/06/18 16:50: WBC 9.1, RBC 3.87 L, Hgb 10.6 L, Hct 32.2 L, MCV 83.1, MCH 27.4, MCHC 33.0, RDW 13.8, Plt Count 243, MPV 7.9, Neut % (Auto) 63.1, Lymph % (Auto) 30.9, [place] % (Auto) 5.7, Eos % (Auto) 0.0 L, Baso % (Auto) 0.3, Neut # (Auto) 5.7, Lymph # (Auto) 2.8, [place] # (Auto) 0.5, Eos # (Auto) 0.0, Baso # (Auto) 0.0 11/06/18 16:50: Sodium 123 L, Potassium 4.3, Chloride 91 L, Carbon Dioxide 20 L, Anion Gap 16.3 H, BUN 48 H, Creatinine 1.15 H, Estimated Creat Clear 19, Estimated GFR 45 L, Est GFR ( Amer) 54 L, Glucose 110 H, Calcium 7.7 L, Total Bilirubin 0.5, AST 158 H, ALT 44, Alkaline Phosphatase 163 H, Troponin I 0.10 H, Total Protein 5.2 L D, Albumin 1.6 L, Globulin 3.6 H, Albumin/Globulin Ratio 0.4 L, TSH 2.01 D, Free T4 Index 1.7 L, Thyroxine (T4) 4.6 L, T3 Uptake 36 11/06/18 19:45: Lactate 2.1 H 11/06/18 23:20: Troponin I 0.12 H 11/06/18 23:20: Lactate 3.9 H 11/07/18 01:45: Troponin I 0.11 H 11/07/18 01:45: Lactate 3.0 H 11/07/18 04:50: Sodium 128 L, Potassium 4.1, Chloride 96 L, Carbon Dioxide 20 L, Anion Gap 16.1 H, BUN 43 H, Creatinine 0.79 D, Estimated Creat Clear 22, Estimated GFR 69, Est GFR ( Amer) 83 D, Glucose 85 D, Calcium 7.7 L 11/07/18 07:43: WBC 5.6 D, RBC 3.39 L, Hgb 9.3 L D, Hct 27.7 L, MCV 81.8, MCH 27.5, MCHC 33.6, RDW 14.1, Plt Count 182 D, MPV 8.4, Neut % (Auto) 79.6, Lymph % (Auto) 12.6, [place] % (Auto) 7.3, Eos % (Auto) 0.2, Baso % (Auto) 0.2, Neut # (Auto) 4.5, Lymph # (Auto) 0.7, [place] # (Auto) 0.4, Eos # (Auto) 0.0, Baso # (Auto) 0.0 11/07/18 07:43: TSH 0.66 D, Thyroxine (T4) 4.3 L 11/07/18 08:45: Urine Color Red, Urine Appearance Cloudy, Urine pH 6.0, Ur Specific [place] 1.020, Urine Protein 1+, Urine Glucose (UA) Negative, Urine Ketones Negative, Urine Blood 3+, Urine Nitrate Positive, Urine Bilirubin Negative, Urine Urobilinogen 1.0, Ur Leukocyte Esterase Negative, Urine RBC Tntc, Ur Squamous Epith Cells Occasional, Urine Bacteria 2+ I & O for Last 24 hours: Intake & Output 11/04/18 11/05/18 11/06/18 11/07/18 11:59 11:59 11:59 11:59 Intake Total 2299 / 2299 Output Total 300 / 300 Balance 1998 Weight 80 lb - Constitutional no acute distress, thin Comments: Lying in bed in near position. Eyes open and looks around. Non-verbal. - *Routine Neck Exam Present: supple. Absent: JVD, carotid bruit - *Routine Respiratory Exam Present: decreased breath sounds, diminished air movement. Absent: accessory muscle use, rales, rhonchi, wheezes - *Routine Cardiovascular Exam Present: RRR. Absent: murmur, gallop, rubs - *Routine Extremities Exam Absent: edema, calf tenderness - *Routine Neurological Exam Present: alert Assessment and Plan (1) RBBB Current visit: Yes Status: Acute Category: Medical Code(s): I45.10 - Unspecified right bundle-branch block (2) Atrial fibrillation with rapid ventricular response Current visit: Yes Status: Acute Category: Medical Code(s): I48.91 - Unspecified atrial fibrillation (3) New onset atrial fibrillation Current visit: Yes Status: Acute Category: Medical Code(s): I48.91 - Unspecified atrial fibrillation (4) Low body mass index (BMI) Current visit: Yes Status: Acute Category: Medical (5) Pulmonary nodules Current visit: Yes Status: Acute Category: Medical Code(s): R91.8 - Other nonspecific abnormal finding of lung field (6) Anemia Current visit: Yes Status: Acute Qualifiers: Anemia type: unspecified type Qualified Code(s): D64.9 - Anemia, unspecified Category: Medical Code(s): D64.9 - Anemia, unspecified (7) Hyponatremia Current visit: Yes Status: Acute Category: Medical Code(s): E87.1 - Hypo- osmolality and hyponatremia (8) Elevated troponin Current visit: Yes Status: Acute Category: Medical Code(s): R74.8 - Abnormal levels of other serum enzymes (9) Renal insufficiency Current visit: Yes Status: Acute Category: Medical Code(s): N28.9 - Disorder of kidney and ureter, unspecified - Assessment and plan all Dx Assessment and Plan for all problems:: 1. Preliminary echo today shows preserved LVEF. Poor study for any other useful information. 2. A. fib, now appears sinus at 100 bpm with RBBB. 3. Switch IV Cardizem to PO short acting 40 mg TID so patient can take it with applesauce. 4. With CHADS-VASc score of 5, recommendation is for anticoagulation. Would recommend Xarelto 20 mg daily.
--- NOTE | 2018-11-07 13:42 | Progress Note ---
Internal Medicine - PN: Subj *Date: 11/07/18 *Time: 13:40 Interval history: somulent but no focal changes - will check u/a Exam Vital signs and Labs for Last 24 Hours: Temp Pulse Resp BP Pulse Ox 97.6 F 98 H 23 93/51 L 92 L 11/07/18 08:00 11/07/18 12:00 11/07/18 12:00 11/07/18 12:00 11/07/18 12:00 Laboratory Results - last 24 hr 11/06/18 16:00: ABG pH 7.51 H, ABG pCO2 25.0 L, ABG pO2 65.8 L, ABG HCO3 19.4 L, ABG Total CO2 20.2 L, ABG O2 Saturation 93, ABG Base Excess -3.6 L 11/06/18 16:50: WBC 9.1, RBC 3.87 L, Hgb 10.6 L, Hct 32.2 L, MCV 83.1, MCH 27.4, MCHC 33.0, RDW 13.8, Plt Count 243, MPV 7.9, Neut % (Auto) 63.1, Lymph % (Auto) 30.9, [place] % (Auto) 5.7, Eos % (Auto) 0.0 L, Baso % (Auto) 0.3, Neut # (Auto) 5.7, Lymph # (Auto) 2.8, [place] # (Auto) 0.5, Eos # (Auto) 0.0, Baso # (Auto) 0.0 11/06/18 16:50: Sodium 123 L, Potassium 4.3, Chloride 91 L, Carbon Dioxide 20 L, Anion Gap 16.3 H, BUN 48 H, Creatinine 1.15 H, Estimated Creat Clear 19, Estimated GFR 45 L, Est GFR ( Amer) 54 L, Glucose 110 H, Calcium 7.7 L, Total Bilirubin 0.5, AST 158 H, ALT 44, Alkaline Phosphatase 163 H, Troponin I 0.10 H, Total Protein 5.2 L D, Albumin 1.6 L, Globulin 3.6 H, Albumin/Globulin Ratio 0.4 L, TSH 2.01 D, Free T4 Index 1.7 L, Thyroxine (T4) 4.6 L, T3 Uptake 36 11/06/18 19:45: Lactate 2.1 H 11/06/18 23:20: Troponin I 0.12 H 11/06/18 23:20: Lactate 3.9 H 11/07/18 01:45: Troponin I 0.11 H 11/07/18 01:45: Lactate 3.0 H 11/07/18 04:50: Sodium 128 L, Potassium 4.1, Chloride 96 L, Carbon Dioxide 20 L, Anion Gap 16.1 H, BUN 43 H, Creatinine 0.79 D, Estimated Creat Clear 22, Estimated GFR 69, Est GFR ( Amer) 83 D, Glucose 85 D, Calcium 7.7 L 11/07/18 07:43: WBC 5.6 D, RBC 3.39 L, Hgb 9.3 L D, Hct 27.7 L, MCV 81.8, MCH 27.5, MCHC 33.6, RDW 14.1, Plt Count 182 D, MPV 8.4, Neut % (Auto) 79.6, Lymph % (Auto) 12.6, [place] % (Auto) 7.3, Eos % (Auto) 0.2, Baso % (Auto) 0.2, Neut # (Auto) 4.5, Lymph # (Auto) 0.7, [place] # (Auto) 0.4, Eos # (Auto) 0.0, Baso # (Auto) 0.0 11/07/18 07:43: TSH 0.66 D, Thyroxine (T4) 4.3 L 11/07/18 08:45: Urine Color Red, Urine Appearance Cloudy, Urine pH 6.0, Ur Specific [place] 1.020, Urine Protein 1+, Urine Glucose (UA) Negative, Urine Ketones Negative, Urine Blood 3+, Urine Nitrate Positive, Urine Bilirubin Negative, Urine Urobilinogen 1.0, Ur Leukocyte Esterase Negative, Urine RBC Tntc, Ur Squamous Epith Cells Occasional, Urine Bacteria 2+ I & O for Last 24 hours: Intake & Output 11/05/18 11/06/18 11/07/18 11/08/18 11:59 11:59 11:59 11:59 Intake Total 2299 / 2299 306 / 306 Output Total 300 / 300 Balance 1998 306 / 306 Weight 80 lb - Constitutional somnolent - *Routine HEENT Exam Head: Present: normocephalic Eye: Present: EOMI, PERRL ENT: Present: mucous membranes dry - *Routine Neck Exam Absent: JVD - *Routine Respiratory Exam Present: decreased breath sounds - *Routine Cardiovascular Exam Present: RRR, murmur - *Routine Abdominal Exam Present: soft - *Routine Extremities Exam Absent: edema - *Routine Skin Exam Present: intact - *Routine Neurological Exam Present: altered mental status - Routine Psychiatric Exam Present: unable to assess Assessment and Plan (1) RBBB Current visit: Yes Status: Acute Category: Medical Code(s): I45.10 - Unspecified right bundle-branch block (2) Atrial fibrillation with rapid ventricular response Current visit: Yes Status: Acute Category: Medical Code(s): I48.91 - Unspecified atrial fibrillation (3) New onset atrial fibrillation Current visit: Yes Status: Acute Category: Medical Code(s): I48.91 - Unspe cified atrial fibrillation (4) Low body mass index (BMI) Current visit: Yes Status: Acute Category: Medical (5) Pulmonary nodules Current visit: Yes Status: Acute Category: Medical Code(s): R91.8 - Other nonspecific abnormal finding of lung field (6) Anemia Current visit: Yes Status: Acute Qualifiers: Anemia type: unspecified type Qualified Code(s): D64.9 - Anemia, unspecified Category: Medical Code(s): D64.9 - Anemia, unspecified (7) Hyponatremia Current visit: Yes Status: Acute Category: Medical Code(s): E87.1 - Hypo- osmolality and hyponatremia (8) Elevated troponin Current visit: Yes Status: Acute Category: Medical Code(s): R74.8 - Abnormal levels of other serum enzymes (9) Renal insufficiency Current visit: Yes Status: Acute Category: Medical Code(s): N28.9 - Disorder of kidney and ureter, unspecified (10) UTI (urinary tract infection) Current visit: Yes Status: Acute Qualifiers: Urinary tract infection type: site unspecified Hematuria presence: with hematuria Qualified Code(s): N39.0 - Urinary tract infection, site not specified; R31.9 - Hematuria, unspecified Category: Medical Code(s): N39.0 - Urinary tract infection, site not specified
--- NOTE | 2018-11-07 20:20 | Cardiology Report ---
PROCEDURE: Limited study performed. INDICATIONS FOR THE TEST: Chest pain COPD Heart Murmur Tobacco Smoking Palpitations Fatigue Syncope Edema Hypertension Diabetes Mellitus Rheumatic Fever SOB HOWARD Obesity Hyperlipidemia Family History HD LIMITED EXAM Additional History AF RVR CHECK EF PT IN POSITION MAKING SCAN VERY DIFFICULT ELEVATED TROPONINS,RBBB PATIENT INFORMATION HEIGHT: 64 WEIGHT:80 GENDER: Female B/P:90/50 2-D/M-MODE INTERPRETATION: 2-D MEASUREMENTS OBSERVED VALUES IN CMS Right Ventricular Dimension (RVDd) Interventricular Septum (Thickness)(IVsd) Left Ventricular Internal Dimensions(LVIDd) Left Ventricular Posterior Wall (Thickness)(LVPWd) Aortic Root Aortic Cusp Separation Left Atrial Dimensions (LAD) 2D 1. Technically very difficult study because of the patient's factor and poor acoustic windows 2. In the limited views were obtained there appears to be preserved left ventricular systolic function. 3. The right-sided chambers appear to be normal size and contractility. 4. The valvular structures are not well visualized. 5. No significant pericardial effusion noted. DOPPLER INTERROGATION: No Doppler performed. CONCLUSION: 1. Limited study. 2. In the obtained views there appears to be preserved left ventricular systolic function.
--- NOTE | 2018-11-08 08:34 | Progress Note ---
Internal Medicine - PN: Subj *Date: 11/08/18 *Time: 08:44 Interval history: 88 YOF in bed, resting quietly, non-verbal, no apparent distress. Exam Vital signs and Labs for Last 24 Hours: Temp Pulse Resp BP Pulse Ox 98.0 F 73 29 H 118/47 L 92 L 11/08/18 04:00 11/08/18 04:00 11/08/18 04:00 11/08/18 04:00 11/08/18 04:00 Laboratory Results - last 24 hr 11/07/18 08:45: Urine Color Red, Urine Appearance Cloudy, Urine pH 6.0, Ur Specific [place] 1.020, Urine Protein 1+, Urine Glucose (UA) Negative, Urine Ketones Negative, Urine Blood 3+, Urine Nitrate Positive, Urine Bilirubin Negative, Urine Urobilinogen 1.0, Ur Leukocyte Esterase Negative, Urine RBC Tntc, Ur Squamous Epith Cells Occasional, Urine Bacteria 2+ I & O for Last 24 hours: Intake & Output 11/05/18 11/06/18 11/07/18 11/08/18 23:59 23:59 23:59 23:59 Intake Total 2086 / 2299 2553 / 2553 1126 / 1126 Output Total 300 / 300 350 / 350 Balance 1785 / 1998 2203 / 2203 1126 / 1126 Weight 80 lb 80 lb Microbiology Reports for the Last 24 Hours: Microbiology 11/07/18 08:45 Urine,Clean Catch Urine Culture - Preliminary Gram Negative Rods - Constitutional no acute distress - *Routine HEENT Exam Head: Present: normocephalic, atraumatic Eye: Present: EOMI, PERRL ENT: Present: mucous membranes dry - *Routine Neck Exam Present: supple - *Routine Respiratory Exam Present: decreased breath sounds, CTA bilaterally. Absent: accessory muscle use - *Routine Cardiovascular Exam Present: RRR, Normal S1, Normal S2 - *Routine Abdominal Exam Present: soft, normoactive bowel sounds - *Routine Extremities Exam Present: pulses intact, normal capillary refill - Routine Back/Spine/Pelvis Exam Back/Spine: Present: full ROM - *Routine Skin Exam Present: intact - *Routine Neurological Exam Present: altered mental status Assessment and Plan (1) RBBB Current visit: Yes Status: Acute Category: Medical Code(s): I45.10 - Unspecified right bundle-branch block (2) Atrial fibrillation with rapid ventricular response Current visit: Yes Status: Acute Category: Medical Code(s): I48.91 - Unspecified atrial fibrillation (3) New onset atrial fibrillation Current visit: Yes Status: Acute Category: Medical Code(s): I48.91 - Unspecified atrial fibrillation (4) Low body mass index (BMI) Current visit: Yes Status: Acute Category: Medical (5) Pulmonary nodules Current visit: Yes Status: Acute Category: Medical Code(s): R91.8 - Other nonspecific abnormal finding of lung field (6) Anemia Current visit: Yes Status: Acute Qualifiers: Anemia type: unspecified type Qualified Code(s): D64.9 - Anemia, unspecified Category: Medical Code(s): D64.9 - Anemia, unspecified (7) Hyponatremia Current visit: Yes Status: Acute Category: Medical Code(s): E87.1 - Hypo- osmolality and hyponatremia (8) Elevated troponin Current visit: Yes Status: Acute Category: Medical Code(s): R74.8 - Abnormal levels of other serum enzymes (9) Renal insufficiency Current visit: Yes Status: Acute Category: Medical Code(s): N28.9 - Disor john of kidney and ureter, unspecified (10) UTI (urinary tract infection) Current visit: Yes Status: Acute Category: Medical Code(s): N39.0 - Urinary tract infection, site not specified - Assessment and plan all Dx Assessment and Plan for all problems:: Awaiting cultures Rounded w/. Dr. Bustos, all rounds per Dr. Bustos The patient's infection will respond to the chosen ABx?: Yes Is the patient receiving the right drug, dose, and route?: Yes Could a more targeted ABx be ordered?: No 14
[2018-11-08 09:11] LABS: Basophils % 0.1 % (0.1-2.0); Eosinophils % 0.6 % (0.1-12.0); Hematocrit 29.6 % (37.0-47.0); Hemoglobin 9.9 g/dL (12.2-16.2); Lymphocytes # 0.5 K/mm3 (0.7-4.5); Lymphocytes % 12.3 % (10-50); Mean Corpuscular HGB Conc 33.4 g/dL (31.8-35.4); Mean Corpuscular Hemoglobin 27.7 pg (27.0-31.2); Mean Corpuscular Volume 82.9 fl (81-99); Mean Platelet Volume 8.2 fl (7.4-10.4); Monocytes # 0.3 K/mm3 (0.1-1.0); Monocytes % 5.9 % (1.7-9.3); Neutrophils # 3.5 K/mm3 (1.8-7.8); Neutrophils % 81.1 % (37.0-80.0); Platelet Count 196 K/mm3 (142-424); Red Blood Count 3.57 M/mm3 (4.20-5.40); Red Cell Distribution Width 14.3 % (11.5-17.5); White Blood Count 4.3 K/mm3 (4.8-10.8)
--- NOTE | 2018-11-08 09:29 | Progress Note ---
Subjective Date: 11/08/18 Time: 09:25 Principal diagnosis: A. fib Interval history: 88 yo WF in bed in NAD. More alert but still non-verbal. Telemetry shows A. fib with rates in the 120's. Exam Vital signs and Labs for Last 24 Hours: Temp Pulse Resp BP Pulse Ox 98.0 F 120 H 29 H 118/47 L 92 L 11/08/18 04:00 11/08/18 08:00 11/08/18 04:00 11/08/18 04:00 11/08/18 04:00 Laboratory Results - last 24 hr 11/07/18 08:45: Urine Color Red, Urine Appearance Cloudy, Urine pH 6.0, Ur Specific [place] 1.020, Urine Protein 1+, Urine Glucose (UA) Negative, Urine Ketones Negative, Urine Blood 3+, Urine Nitrate Positive, Urine Bilirubin Negative, Urine Urobilinogen 1.0, Ur Leukocyte Esterase Negative, Urine RBC Tntc, Ur Squamous Epith Cells Occasional, Urine Bacteria 2+ 11/08/18 08:54: WBC 4.3 L, RBC 3.57 L, Hgb 9.9 L, Hct 29.6 L, MCV 82.9, MCH 27.7, MCHC 33.4, RDW 14.3, Plt Count 196, MPV 8.2, Neut % (Auto) 81.1 H, Lymph % (Auto) 12.3, [place] % (Auto) 5.9, Eos % (Auto) 0.6, Baso % (Auto) 0.1, Neut # (Auto) 3.5, Lymph # (Auto) 0.5 L, [place] # (Auto) 0.3, Eos # (Auto) 0.0, Baso # (Auto) 0.0 I & O for Last 24 hours: Intake & Output 11/05/18 11/06/18 11/07/18 11/08/18 11:59 11:59 11:59 11:59 Intake Total 2299 / 2299 3466 / 3466 Output Total 300 / 300 350 / 350 Balance 1998 3116 / 3116 Weight 80 lb 80 lb Microbiology Reports for the Last 24 Hours: Microbiology 11/07/18 08:45 Urine,Clean Catch Urine Culture - Preliminary Gram Negative Rods - *Routine Respiratory Exam Present: diminished air movement. Absent: accessory muscle use, rales, rhonchi, wheezes - *Routine Cardiovascular Exam Present: tachycardia, irregularly irregular. Absent: murmur, gallop, rubs - *Routine Extremities Exam Absent: edema, calf tenderness - *Routine Neurological Exam Present: alert Progress Note: A&P (1) RBBB Status: Acute Current Visit: Yes (2) Atrial fibrillation with rapid ventricular response Status: Acute Current Visit: Yes (3) New onset atrial fibrillation Status: Acute Current Visit: Yes (4) Low body mass index (BMI) Status: Acute Current Visit: Yes (5) Pulmonary nodules Status: Acute Current Visit: Yes (6) Anemia Status: Acute Current Visit: Yes (7) Hyponatremia Status: Acute Current Visit: Yes (8) Elevated troponin Status: Acute Current Visit: Yes (9) Renal insufficiency Status: Acute Current Visit: Yes (10) UTI (urinary tract infection) Status: Acute Current Visit: Yes Assessment and Plan for All Diagnoses:: Will increase cardizem to 60 mg QID for attempt at better rate control. Continue Xarelto
[2018-11-08 10:20] LABS: Anion Gap 15.5 mEq/L (5-15); Calcium 7.6 mg/dL (8.5-10.1)
[2018-11-08 10:22] LABS: Potassium 4.5 mmoL/L (3.5-5.1)
--- NOTE | 2018-11-09 08:56 | Progress Note ---
Subjective Date: 11/09/18 Time: 08:52 Principal diagnosis: A. fib Interval history: 88 yo WF in bed in NAD, sleeping soundly. Nurses relate cardizem switched to IV due to NPO status. High risk for aspiration per swallowing evaluation. Telemetry shows NSR. On IV cardizem, digoxin and now lovenox until decision on G tube placement. Exam Vital signs and Labs for Last 24 Hours: Temp Pulse Resp BP Pulse Ox 98.3 F 93 H 16 104/53 L 94 L 11/09/18 04:00 11/09/18 06:00 11/09/18 06:00 11/09/18 06:00 11/09/18 06:00 Laboratory Results - last 24 hr 11/08/18 08:54: WBC 4.3 L, RBC 3.57 L, Hgb 9.9 L, Hct 29.6 L, MCV 82.9, MCH 27.7, MCHC 33.4, RDW 14.3, Plt Count 196, MPV 8.2, Neut % (Auto) 81.1 H, Lymph % (Auto) 12.3, [place] % (Auto) 5.9, Eos % (Auto) 0.6, Baso % (Auto) 0.1, Neut # (Auto) 3.5, Lymph # (Auto) 0.5 L, [place] # (Auto) 0.3, Eos # (Auto) 0.0, Baso # (Auto) 0.0 11/08/18 08:54: Sodium 133 L, Potassium 4.5, Chloride 103, Carbon Dioxide 19 L, Anion Gap 15.5 H, BUN 34 H, Creatinine 0.64, Estimated Creat Clear 22, Estimated GFR 88, Est GFR ( Amer) 106 D, Glucose 126 H, Calcium 7.6 L I & O for Last 24 hours: Intake & Output 11/06/18 11/07/18 11/08/18 11/09/18 11:59 11:59 11:59 11:59 Intake Total 2299 / 2299 3706 / 3706 3395 / 3395 Output Total 300 / 300 550 / 550 100 / 100 Balance 1998 3156 / 3156 3295 / 3295 Weight 80 lb 80 lb 104 lb 11.513 oz Microbiology Reports for the Last 24 Hours: Microbiology 11/07/18 08:45 Urine,Clean Catch Urine Culture - Final Escherichia coli 11/07/18 05:00 Blood Blood Culture - Preliminary NO GROWTH AFTER 48 HOURS 11/07/18 04:50 Blood Blood Culture - Preliminary NO GROWTH AFTER 48 HOURS - *Routine Respiratory Exam Present: CTA bilaterally. Absent: accessory muscle use, rales, rhonchi, wheezes - *Routine Cardiovascular Exam Present: RRR. Absent: murmur, gallop, rubs Progress Note: A&P (1) RBBB Status: Acute Current Visit: Yes (2) Atrial fibrillation with rapid ventricular response Status: Acute Current Visit: Yes (3) New onset atrial fibrillation Status: Acute Current Visit: Yes (4) Low body mass index (BMI) Status: Acute Current Visit: Yes (5) Pulmonary nodules Status: Acute Current Visit: Yes (6) Anemia Status: Acute Current Visit: Yes (7) Hyponatremia Status: Acute Current Visit: Yes (8) Elevated troponin Status: Acute Current Visit: Yes (9) Renal insufficiency Status: Acute Current Visit: Yes (10) UTI (urinary tract infection) Status: Acute Current Visit: Yes Assessment and Plan for All Diagnoses:: 1. Remains in NSR/sinus tach on IV cardizem and digoxin. 2. Continue lovenox until decision on G-tube. 3. Nothing further to add at this time.
--- NOTE | 2018-11-09 20:19 | Progress Note ---
Internal Medicine - PN: Subj *Date: 11/09/18 *Time: 20:16 Interval history: pt with sl more awake today and on abx and failed swallowing eval Exam Vital signs and Labs for Last 24 Hours: Temp Pulse Resp BP Pulse Ox 98.1 F 92 H 20 116/74 99 11/09/18 20:00 11/09/18 20:00 11/09/18 20:00 11/09/18 20:00 11/09/18 20:00 I & O for Last 24 hours: Intake & Output 11/07/18 11/08/18 11/09/18 11/10/18 11:59 11:59 11:59 11:59 Intake Total 2299 / 2299 3706 / 3706 3395 / 3395 850 / 850 Output Total 300 / 300 550 / 550 100 / 100 250 / 250 Balance 1998 3156 / 3156 3295 / 3295 600 / 600 Weight 80 lb 80 lb 104 lb 11.513 oz Microbiology Reports for the Last 24 Hours: Microbiology 11/07/18 05:00 Blood Blood Culture - Preliminary 11/07/18 08:45 Urine,Clean Catch Urine Culture - Final Escherichia coli 11/07/18 04:50 Blood Blood Culture - Preliminary NO GROWTH AFTER 48 HOURS - Constitutional obtunded - *Routine HEENT Exam Head: Present: atraumatic Eye: Present: EOMI, PERRL ENT: Present: mucous membranes dry - *Routine Neck Exam Absent: JVD - *Routine Respiratory Exam Present: decreased breath sounds - *Routine Cardiovascular Exam Present: RRR, murmur - *Routine Abdominal Exam Present: soft - *Routine Extremities Exam Absent: edema - *Routine Skin Exam Present: intact - *Routine Neurological Exam Present: altered mental status no posturing - Routine Psychiatric Exam Present: unable to assess Assessment and Plan (1) RBBB Current visit: Yes Status: Acute Category: Medical Code(s): I45.10 - Unspecified right bundle-branch block (2) Atrial fibrillation with rapid ventricular response Current visit: Yes Status: Acute Category: Medical Code(s): I48.91 - Unspecified atrial fibrillation (3) New onset atrial fibrillation Current visit: Yes Status: Acute Category: Medical Code(s): I48.91 - Unspecified atrial fibrillation (4) Low body mass index (BMI) Current visit: Yes Status: Acute Category: Medical (5) Pulmonary nodules Current visit: Yes Status: Acute Category: Medical Code(s): R91.8 - Other nonspecific abnormal finding of lung field (6) Anemia Current visit: Yes Status: Acute Qualifiers: Anemia type: unspecified type Qualified Code(s): D64.9 - Anemia, unspecified Category: Medical Code(s): D64.9 - Anemia, unspecified (7) Hyponatremia Current visit: Yes Status: Acute Category: Medical Code(s): E87.1 - Hypo- osmolality and hyponatremia (8) Elevated troponin Current visit: Yes Status: Acute Category: Medical Code(s): R74.8 - Abnormal levels of other serum enzymes (9) Renal insufficiency Current visit: Yes Status: Acute Category: Medical Code(s): N28.9 - Disorder of kidney and ureter, unspecified (10) UTI (urinary tract infection) Current visit: Yes Status: Acute Category: Medical Code(s): N39.0 - Urinary tract infection, site not specified (11) E. coli UTI (urinary tract infection) Current visit: Yes Status: Acute Category: Medical Code(s): N39.0 - Urinary tract infection, site not specified; B96.20 - Unspecified Escherichia coli [E. coli] as the cause of diseases classified elsewhere (12) Dysphagia Current visit: Yes Status: Acute Qualifiers: Dysphagia type: oropharyngeal phase Qualified Code(s): R13.12 - Dysphagia, oropharyngeal phase Category: Medical Code(s): R13.10 - Dysphagia, unspecified 14
--- NOTE | 2018-11-10 07:06 | Progress Note ---
Subjective Date: 11/10/18 Time: 07:03 Principal diagnosis: A. fib Interval history: 88 yo WF in bed sleeping. Hospice services have been initiated. Telemetry and IV cardizem discontinued. Exam Vital signs and Labs for Last 24 Hours: Temp Pulse Resp BP Pulse Ox 98.3 F 97 H 20 131/76 99 11/10/18 04:00 11/10/18 04:00 11/10/18 04:00 11/10/18 04:00 11/10/18 04:00 I & O for Last 24 hours: Intake & Output 11/07/18 11/08/18 11/09/18 11/10/18 11:59 11:59 11:59 11:59 Intake Total 2299 / 2299 3706 / 3706 3395 / 3395 850 / 850 Output Total 300 / 300 550 / 550 100 / 100 250 / 250 Balance 1998 3156 / 3156 3295 / 3295 600 / 600 Weight 80 lb 80 lb 104 lb 11.513 oz 100 lb 9 oz Microbiology Reports for the Last 24 Hours: Microbiology 11/07/18 05:00 Blood Blood Culture - Preliminary 11/07/18 08:45 Urine,Clean Catch Urine Culture - Final Escherichia coli 11/07/18 04:50 Blood Blood Culture - Preliminary NO GROWTH AFTER 48 HOURS - *Routine Respiratory Exam Present: decreased breath sounds, diminished air movement. Absent: accessory m uscle use, rales, rhonchi, wheezes - *Routine Cardiovascular Exam Present: tachycardia, irregularly irregular. Absent: murmur, gallop, rubs Progress Note: A&P (1) RBBB Status: Acute Current Visit: Yes (2) Atrial fibrillation with rapid ventricular response Status: Acute Current Visit: Yes (3) New onset atrial fibrillation Status: Acute Current Visit: Yes (4) Low body mass index (BMI) Status: Acute Current Visit: Yes (5) Pulmonary nodules Status: Acute Current Visit: Yes (6) Anemia Status: Acute Current Visit: Yes (7) Hyponatremia Status: Acute Current Visit: Yes (8) Elevated troponin Status: Acute Current Visit: Yes (9) Renal insufficiency Status: Acute Current Visit: Yes (10) UTI (urinary tract infection) Status: Acute Current Visit: Yes (11) E. coli UTI (urinary tract infection) Status: Acute Current Visit: Yes (12) Dysphagia Status: Acute Current Visit: Yes Assessment and Plan for All Diagnoses:: Nothing to add. Call if needed.
--- NOTE | 2018-11-10 08:22 | Progress Note ---
Internal Medicine - PN: Subj *Date: 11/10/18 *Time: 08:21 Exam Vital signs and Labs for Last 24 Hours: Temp Pulse Resp BP Pulse Ox 98.3 F 97 H 20 131/76 99 11/10/18 04:00 11/10/18 04:00 11/10/18 04:00 11/10/18 04:00 11/10/18 04:00 I & O for Last 24 hours: Intake & Output 11/07/18 11/08/18 11/09/18 11/10/18 23:59 23:59 23:59 23:59 Intake Total 2553 / 2553 2466 / 2466 3145 / 3145 Output Total 350 / 350 200 / 200 350 / 350 Balance 2203 / 2203 2266 / 2266 2795 / 2795 Weight 36.287 kg 45.1 kg 47.5 kg 45.614 kg Microbiology Reports for the Last 24 Hours: Microbiology 11/07/18 05:00 Blood Blood Culture - Preliminary 11/07/18 08:45 Urine,Clean Catch Urine Culture - Final Escherichia coli 11/07/18 04:50 Blood Blood Culture - Preliminary NO GROWTH AFTER 48 HOURS Assessment and Plan (1) RBBB Current visit: Yes Status: Acute Category: Medical Code(s): I45.10 - Unspecified right bundle-branch block (2) Atrial fibrillation with rapid ventricular response Current visit: Yes Status: Acute Category: Medical Code(s): I48.91 - Unspecified atrial fibrillation (3) New onset atrial fibrillation Current visit: Yes Status: Acute Category: Medical Code(s): I48.91 - Unspecified atrial fibrillation (4) Low body mass index (BMI) Current visit: Yes Status: Acute Category: Medical (5) Pulmonary nodules Current visit: Yes Status: Acute Category: Medical Code(s): R91.8 - Other nonspecific abnormal finding of lung field (6) Anemia Current visit: Yes Status: Acute Qualifiers: Anemia type: unspecified type Qualified Code(s): D64.9 - Anemia, unspecified Category: Medical Code(s): D64.9 - Anemia, unspecified (7) Hyponatremia Current visit: Yes Status: Acute Category: Medical Code(s): E87.1 - Hypo- osmolality and hyponatremia (8) Elevated troponin Current visit: Yes Status: Acute Category: Medical Code(s): R74.8 - Abnormal levels of other serum enzymes (9) Renal insufficiency Current visit: Yes Status: Acute Category: Medical Code(s): N28.9 - Disorder of kidney and ureter, unspecified (10) UTI (urinary tract infection) Current visit: Yes Status: Acute Category: Medical Code(s): N39.0 - Urinary tract infection, site not specified (11) E. coli UTI (urinary tract infection) Current visit: Yes Status: Acute Category: Medical Code(s): N39.0 - Urinary tract infection, site not specified; B96.20 - Unspecified Escherichia coli [E. coli] as the cause of diseases classified elsewhere (12) Dysphagia Current visit: Yes Status: Acute Qualifiers: Dysphagia type: oropharyngeal phase Qualified Code(s): R13.12 - Dysphagia, oropharyngeal phase Category: Medical Code(s): R13.10 - Dysphagia, unspecified The patient's infection will respond to the chosen ABx?: Yes Is the patient receiving the right drug, dose, and route?: Yes Could a more targeted ABx be ordered?: No (CULTURE SENSITIVE TO INVANZ)
--- NOTE | 2018-11-10 08:56 | Discharge Summary ---
General - General Admission date:: 11/06/18 Discharge date: 11/10/18 HPI HPI: 88 YOF who family reports has not acted at baseline for a few days tory obtained from daughters and grandson. The patient slumped over while on the toilet on Wednesday 6 days ago. Had to be lifted and put back in bed. Since then has been prostrate in bed, not eating or drinking well, rolled up in a ball. Decreased urinary output. Had diarrhea on . Decreased responsiveness. Has dementia. Family states does not have advanced directives, but daughter is power of employee benefits attorney. She says she would "not want to be on a ventilator if she is not going to pull out of it". Hospital Course Hospital Course: New onset Atrial fibrillation with rapid ventricular response: Started on Diltiazem IV, then started PO Dehydration: IVF Urine CX = E. Coli, started Invanz IVPB [facility] [place] 11/08/2018: [facility] Recommendations Diet Dietary Recommendations NPO Mod Barium Swallow Impressions Summary and Impressions Oral Phase Impression Severe Impairment Oral Phase Summary Ms. Oneill was given the following consistencies: thins , nectar, and honey via straw, pudding, and pureed. Ms. Almanza exhibited scattered bolus with all consistencies, inability to form bolus with all consistencies, excessive oral residue with all consistencies and severe delay in initiation of swallow ( greater than 11 seconds). Pharyngeal Phase Impression Moderate Impairment Pharyngeal Phase Summary Ms. Oneill exhibited penetration into laryngeal vestibule with all consistencies however no aspiration noted. At this time , it is recommended she be placed NPO until her carmel improves. Per Haley Perez Will D/C home w/ Hospice w/ diet as desired Objective Vital signs: Temp Pulse Resp BP Pulse Ox 98.3 F 97 H 20 131/76 99 11/10/18 04:00 11/10/18 04:00 11/10/18 04:00 11/10/18 04:00 11/10/18 04:00 Narrative: 88-year-old female patient laying in bed moans occasionally. Will discharge home today with hospice no acute distress - *Routine HEENT Exam Head: Present: normocephalic Eye: Present: EOMI ENT: Present: mucous membranes dry - *Routine Neck Exam Present: supple - *Routine Respiratory Exam Present: CTA bilaterally - *Routine Cardiovascular Exam Present: irregular rhythm, irregularly irregular - *Routine Abdominal Exam Present: soft, normoactive bowel sounds - *Routine Extremities Exam Present: pulses intact. Absent: cyanosis - *Routine Neurological Exam Present: altered mental status Results Labs on day of discharge: Preliminary micro results at discharge 11/07/18 05:00 Blood Culture - Preliminary Blood 11/07/18 04:50 Blood Culture - Preliminary Blood NO GROWTH AFTER 48 HOURS - Additional Comments Rounded with Dr. Bustos orders per Dr. Bustos DS: Diagnosis - Discharge Diagnosis (1) RBBB Status: Acute (2) Atrial fibrillation with rapid ventricular response Status: Acute (3) New onset atrial fibrillation Status: Acute (4) Low body mass index (BMI) Status: Acute (5) Pulmonary nodules Status: Acute (6) Anemia Status: Acute (7) Hyponatremia Status: Acute (8) Elevated troponin Status: Acute (9) Renal insufficiency Status: Acute (10) UTI (urinary tract infection) Status: Acute (11) E. coli UTI (urinary tract infection) Status: Acute (12) Dysphagia Status: Acute Discharge Plan - Patient Discharge Instructions ACTIVITY: Continue current activity DIET: continue same diet Patient Instructions: Dehydration, Atrial Fibrillation, Delirium, DI for Dehydration -- Adult, DI for Atrial Fibrillation, DI for Urinary Tract Infection (UTI), DI for Altered Mental Status - Follow up Plan Disposition: Hospice - Home Home Medications: Home Medications Medication Instructions Recorded Confirmed Type Aspirin [Aspir 81] 81 mg PO DAILY 11/06/18 11/06/18 History Multivitamin [One Daily] 1 each PO DAILY 11/06/18 11/06/18 History Prescriptions/Medication Reconciliation: Discontinued Multivitamin [One Daily] 1 each PO DAILY Aspirin [Aspir 81] 81 mg PO DAILY
== END 2018-11-10 12:54 | disposition hospice, home (50) | DRG 281 ==
LOC: ER 15:41 → ICU 19:36
PROVIDERS: ADMIT Family Medicine; ATTEND Emergency Medicine
CPT/HCPCS: 36415; 70371; 70450; 71010; 71045; 80048; 80053; 81001; 82803; 83605; 84436; 84443; 84479; 84484; 85025; 87040; 87077; 87086; 87088; 87186; 92611; 93005; 93308; 94761; 96365; 96366; 96367; 96375; 99284; C1751; J1335